=== PATIENT | female | born 1985 | race Caucasian/White ===

== ENCOUNTER 2023-09-04 13:42 | Emergency (ER) | payer MEDICAID ==
[~2023-09-04] VITALS: Ht 154.9 cm; Wt 145.1 kg
[~2023-09-04 13:42] MED LIST: ANAPROX DS550 MG PO; B121000 MCG/1 IM; CLARITIN10 MG PO; MOTRIN600 MG PO; TYLENOL W/CODEI1 TA2 PO; ZITHROMAX Z PA250 MG PO
[2023-09-04] MEDS ORDERED: LASIX20 MG PO (14:16)
[2023-09-04] MEDS ORDERED: KLOR-CON 1010 ME1 PO (14:16)
[2023-09-04] MEDS ORDERED: SYNTHROID,LEVO75 MCG PO (14:16)
[2023-09-04] MEDS ORDERED: BRILINTA90 M1 PO (14:16)
== END 2023-09-04 14:28 | disposition home or self-care (01) ==
LOC: ED 13:42
DX: Z76.0 Encounter for issue of repeat prescription (principal); F32.A Depression, unspecified; Z88.8 Allergy status to other drugs, medicaments and biological substances; Z88.5 Allergy status to narcotic agent; Z91.040 Latex allergy status; Z90.49 Acquired absence of other specified parts of digestive tract; Z98.51 Tubal ligation status; Z98.890 Other specified postprocedural states

== ENCOUNTER → 2023-10-21 | Outpatient (CLI) | payer OTHER ==
[~2023-10-21] MED LIST changes: +BRILINTA90 M1 PO; +KLOR-CON 1010 ME1 PO; +LASIX20 MG PO; +SYNTHROID,LEVO75 MCG PO
[2023-10-21 16:38] LABS: BASO # 0.1 10*3/uL (0.0-0.1); BASO % 0.6 % (0.0-1.0); EOS # 0.3 10*3/uL (0.0-0.4); EOS % 2.7 % (1.0-4.0); HEMATOCRIT 42.5 % (37.0-47.0); LYMPH # 3.8 10*3/uL (1.3-4.4); LYMPH % 30.4 % (27.0-41.0); MEAN CORPUSCULAR HGB 27.2 pg (27.0-31.0); MEAN PLATELET VOLUME 9.8 fl (9.6-12.3); MONO # 0.4 10*3/uL (0.1-1.0); MONO % 3.5 % (3.0-9.0); NEUT # 7.6 10*3/uL (2.3-7.9); NEUT % 61.1 % (47.0-73.0); PLATELET COUNT AUTOMATED 313 10*3/uL (130-400); RED CELL DISTRI WIDTH 13.8 % (0-14.5); RETICULOCYTE % 2.24 % (0.50-2.50); WHITE BLOOD COUNT 12.5 10*3/uL (4.8-10.8)
[2023-10-21 17:06] LABS: ALKALINE PHOSPHATASE 88 U/L (46-116); BUN 6 mg/dl (9-23); CHLORIDE 105 mmol/L (98-107); CHOLESTEROL 90 mg/dL (<200); GAMMA GLUTAMYL TRANSPEPTIDASE 28 U/L (0-73); LDL CHOLESTEROL 20 mg/dL (9-159); POTASSIUM 3.7 mmol/L (3.4-5.1); SGPT/ALT 18 U/L (5-49); T3 UPTAKE 23.1 % (22.4-36.7); THYROXINE (T4) TOTAL 7.4 ug/dl (4.5-10.9); TOTAL PROTEIN 7.2 gm/dL (6.0-8.0); TRIGLYCERIDES 178 mg/dl (<150); URIC ACID 6.5 mg/dL (3.1-7.8)
[2023-10-21 17:11] LABS: VITAMIN D, 25-HYDROXY 28.5 ng/mL (30-100)
[2023-10-25 15:06] LABS: ANTI-DSDNA ANTIBODIES <1 IU/mL (0-9)
== END | disposition home or self-care (01) ==
LOC: LAB 16:02
PROVIDERS: ATTEND Family Medicine
DX: E55.9 Vitamin D deficiency, unspecified (principal); E78.5 Hyperlipidemia, unspecified; R79.89 Other specified abnormal findings of blood chemistry; R53.83 Other fatigue; R74.8 Abnormal levels of other serum enzymes

== ENCOUNTER → 2024-05-25 | Outpatient (CLI) | payer OTHER | END | disposition home or self-care (01) | LOC: CT 05-17 14:00 | PROVIDERS: ATTEND Family Medicine | DX: R51.9 Headache, unspecified (principal) ==

== ENCOUNTER → 2024-10-12 | Outpatient (CLI) | payer OTHER ==
[2024-10-12 11:20] LABS: BASO # 0.1 10*3/uL (0.0-0.1); BASO % 0.8 % (0.0-1.0); EOS # 0.3 10*3/uL (0.0-0.4); EOS % 3.1 % (1.0-4.0); HEMATOCRIT 41.3 % (37.0-47.0); MEAN CELL VOLUME 87.1 fl (81.0-99.0); MEAN CORPUSCULAR HGB 28.1 pg (27.0-31.0); MEAN CORPUSCULAR HGB CONC 32.2 g/dl (33.0-37.0); MEAN PLATELET VOLUME 9.5 fl (9.6-12.3); MONO # 0.3 10*3/uL (0.1-1.0); MONO % 3.8 % (3.0-9.0); NEUT # 4.4 10*3/uL (2.3-7.9); NEUT % 51.7 % (47.0-73.0); PLATELET COUNT AUTOMATED 234 10*3/uL (130-400); RED BLOOD COUNT 4.74 10*6/uL (4.10-5.10); RED CELL DISTRI WIDTH 13.1 % (0-14.5); WHITE BLOOD COUNT 8.5 10*3/uL (4.8-10.8)
[2024-10-12 11:49] LABS: BILIRUBIN Negative (Negative); BLOOD Negative (Negative); CLARITY Cloudy (Clear); COLOR Yellow (Yellow); GLUCOSE Negative (Negative); KETONE Negative (Negative); LEUKO ESTERASE Negative (Negative); NITRITE Negative (Negative); PH 6.5 (4.5-8.0); SPECIFIC GRAVITY 1.015 (1.001-1.030); UROBILINOGEN 0.2 E.U./dl (0.0-1.0)
[2024-10-12 11:56] LABS: ALKALINE PHOSPHATASE 61 U/L (46-116); BUN 9 mg/dl (9-23); CHLORIDE 107 mmol/L (98-107); CHOLESTEROL 99 mg/dL (<200); GAMMA GLUTAMYL TRANSPEPTIDASE 30 U/L (0-73); LDL CHOLESTEROL 36 mg/dL (9-159); POTASSIUM 3.9 mmol/L (3.4-5.1); SGPT/ALT 28 U/L (5-49); T3 UPTAKE 27.2 % (22.4-36.7); THYROXINE (T4) TOTAL 7.6 ug/dl (4.5-10.9); TOTAL PROTEIN 6.2 gm/dL (6.0-8.0); TRIGLYCERIDES 133 mg/dl (<150); VITAMIN D, 25-HYDROXY 12.6 ng/mL (30-100)
[2024-10-12 12:03] LABS: BACTERIA 2+; EPITHELIAL CELLS 16-20; WBC 0-2 wbc/hpf (0-5)
== END | disposition home or self-care (01) ==
LOC: LAB 10:41
PROVIDERS: ATTEND Family Medicine
DX: R79.89 Other specified abnormal findings of blood chemistry (principal); M25.50 Pain in unspecified joint; E55.9 Vitamin D deficiency, unspecified

== ENCOUNTER → 2024-12-31 | Outpatient (CLI) | payer OTHER ==
[~2024-12-31] MED LIST changes: +Regadenoson 0.4 MG/5 ML SYR IV ONE
== END | disposition home or self-care (01) ==
LOC: CARD 01:25
PROVIDERS: ATTEND Internal Medicine Cardiovascular Disease
DX: I25.10 Atherosclerotic heart disease of native coronary artery without angina pectoris (principal); Z95.0 Presence of cardiac pacemaker; Z95.5 Presence of coronary angioplasty implant and graft

== ENCOUNTER 2025-03-17 17:10 | Emergency (ER) | payer OTHER ==
[~2025-03-17] VITALS: Ht 154.9 cm; Wt 154.2 kg
[~2025-03-17 17:10] MED LIST changes: -Regadenoson 0.4 MG/5 ML SYR IV ONE
[2025-03-17] MEDS ORDERED: Amoxicillin/Clavulanate Pota 875 MG TAB PO ONE (17:45)
[2025-03-17] MEDS ORDERED: Ciprofloxacin Hydrochloride 0.3% OPHTHLAMIC BOTTLE OT ONE (17:45)
[2025-03-17] MEDS ORDERED: AMOX-CLAV 875-1 EACH PO (17:48)
== END 2025-03-17 17:55 | disposition home or self-care (01) ==
LOC: ED 17:10
DX: H60.91 Unspecified otitis externa, right ear (principal); K04.7 Periapical abscess without sinus; I10 Essential (primary) hypertension; F32.A Depression, unspecified; E03.9 Hypothyroidism, unspecified; E78.00 Pure hypercholesterolemia, unspecified; Z98.890 Other specified postprocedural states; Z90.49 Acquired absence of other specified parts of digestive tract; Z88.1 Allergy status to other antibiotic agents; Z88.5 Allergy status to narcotic agent; Z91.040 Latex allergy status; Z88.8 Allergy status to other drugs, medicaments and biological substances; Z87.440 Personal history of urinary (tract) infections

== ENCOUNTER 2025-04-10 13:12 | Emergency (ER) | payer OTHER ==
[~2025-04-10] VITALS: Wt 141.5 kg
[~2025-04-10 13:12] MED LIST changes: +AMOX-CLAV 875-1 EACH PO
[2025-04-10] MEDS ORDERED: Acetaminophen/Hydrocodone 5 MG/325 MG TABLET PO ONE (13:40)
[2025-04-10] MEDS ORDERED: HYDROCODONE-AC1 EAC1 PO (15:14)
== END 2025-04-10 15:39 | disposition home or self-care (01) ==
LOC: ED 13:12
DX: M25.471 Effusion, right ankle (principal); M25.571 Pain in right ankle and joints of right foot; M19.19 Post-traumatic osteoarthritis, other specified site; M79.671 Pain in right foot; I10 Essential (primary) hypertension; F32.A Depression, unspecified; Z87.440 Personal history of urinary (tract) infections; Z90.49 Acquired absence of other specified parts of digestive tract; Z98.890 Other specified postprocedural states; Z88.5 Allergy status to narcotic agent; Z91.040 Latex allergy status; Z88.1 Allergy status to other antibiotic agents

== ENCOUNTER 2025-04-27 21:47 | Emergency (ER) | payer OTHER ==
[~2025-04-27] VITALS: Ht 154.9 cm; Wt 158.8 kg
[~2025-04-27 21:47] MED LIST changes: +HYDROCODONE-AC1 EAC1 PO
== END 2025-04-28 01:27 | disposition home or self-care (01) ==
LOC: ED 21:47
DX: S80.02XA Contusion of left knee, initial encounter (principal); Z90.49 Acquired absence of other specified parts of digestive tract; Z98.890 Other specified postprocedural states; Z88.8 Allergy status to other drugs, medicaments and biological substances; Z91.040 Latex allergy status; Z88.5 Allergy status to narcotic agent; W19.XXXA Unspecified fall, initial encounter; Y93.89 Activity, other specified; Y92.89 Other specified places as the place of occurrence of the external cause; Y99.8 Other external cause status